=== PATIENT | female | born 1970 | race American Indian/Alaskan Native ===

== ENCOUNTER 2018-06-17 09:45 | Emergency (ER) | payer MEDICAID ==
[2018-06-17 11:31] VITALS: BP 182/94
[2018-06-17] MEDS ORDERED: NORCO 7.5/325 PO ONE (13:28)
--- NOTE | 2018-06-17 13:28 | Emergency Department Report ---
Chief Complaint: Pain General Stated Complaint: SWOLLEN LEGS/BODY PAIN Time Seen by Provider: 06/17/18 13:04 - HPI History of Present Illness: is a 47-year-old F [place] female with asthma history of dependent edema and diabetic neuropathy who states that she is in a pain clinic. Patient states that several days ago she went to see her primary care physician was given prescription for her 120 Vicodin that she gets monthly. Patient states the pharmacy would not fill it because he said "were not dealing with that doctor anymore". I did look this physician up and see no issues with her medical license. Patient has not tried to get this medicine earlier than she normally does on the [place] [facility]. Patient is here just for leg pain. Patient states the swelling in her legs is chronic. - ROS Review of Systems: All systems reviewed and are negative - Exam Vital Signs: Vital Signs 06/17/18 11:22 Temperature 97.9 F Pulse Rate 81 Respiratory 20 Rate Blood Pressure 182/94 O2 Sat by Pulse 100 Oximetry Physical Exam: Focused physical exam the patient has 2+ edema up to the mid calf. This is bilateral. Patient's heart lungs are within normal limits. Patient is alert and oriented 3 in no acute distress. MSE screening note: Focused history and physical exam performed. Due to findings the following was ordered: ED Medical Decision Making - Medical Decision Making Patient was given a single Vicodin here in emergency department. Instructed the patient to try a different pharmacy to try to get her medicines filled and if this does not work she needs to contact her primary care physician or pain clinic. ED Disposition for MSE Clinical Impression: Chronic pain Disposition: DC-01 TO HOME OR SELFCARE Is pt being admited?: No Does the pt Need Aspirin: No Condition: Stable Referrals: PRIMARY CARE, [Primary Care Provider] - 3-5 Days
== END 2018-06-17 13:38 | disposition home or self-care (01) ==
LOC: ED 09:45
DX: M79.604 Pain in right leg (principal); M79.605 Pain in left leg; R22.43 Localized swelling, mass and lump, lower limb, bilateral; G89.29 Other chronic pain
CPT/HCPCS: 99282